=== PATIENT | female | born 1990 | race Caucasian/White ===

== ENCOUNTER 2023-06-07 12:52 | Emergency (ER) | payer OTHER ==
[2023-06-07] MEDS ORDERED: Acetaminophen 500 MG TAB ONE (15:21)
[2023-06-07] MEDS ORDERED: Ketorolac Tromethamine 30 MG (1 mL) VIAL ONE (15:21)
[2023-06-07 16:02] LABS: Bilirubin Neg (Negative); Blood, Urine 10 (Negative); Clarity Clear (Clear); Glucose, Urine (Dipstick) Normal (Negative); Ketone, Urine Negative (Negative); Leukocyte Negative (Negative); Nitrite Negative (Negative); Protein, Urine (Dipstick) Negative (Neg-Trace); Specific Gravity, Urine 1.015 (1.005-1.030); Urobilinogen Normal mg/dL (Less than 2)
[2023-06-07 16:06] LABS: Pregnancy Test - Urine (BHCG) Negative (Negative); Pregu Control Background? CLEAR/WHITE (CLR/WHITE); Pregu Control Bar Appear? YES (CONTROL BAR); Specific Gravity 1.015 (1.002-1.036)
[2023-06-07 16:15] LABS: CAUTI Indications for Culture Pelvic or flank pain; RBC/HPF 0-3 HPF (0-3); Squamous Epithelial 0-3 HPF (0-3); WBC/HPF 0-3 HPF (0-3)
[2023-06-07 16:16] LABS: Bacteria/HPF Rare-Few HPF (None Seen)
[2023-06-07 16:17] LABS: Urine Culture Reflex No No
[2023-06-08 21:07] LABS: Chlamydia by PCR, Vaginal Swab Not Detected (NotDetected); GC by PCR, Vaginal Swab Not Detected (NotDetected)
== END 2023-06-07 17:20 | disposition home or self-care (01) ==
LOC: CSHERS 12:52
DX: S93.401A Sprain of unspecified ligament of right ankle, initial encounter (principal); M54.50 Low back pain, unspecified; A63.0 Anogenital (venereal) warts; R03.0 Elevated blood-pressure reading, without diagnosis of hypertension; K92.9 Disease of digestive system, unspecified; F17.210 Nicotine dependence, cigarettes, uncomplicated; W19.XXXA Unspecified fall, initial encounter; Y93.01 Activity, walking, marching and hiking; Z55.6 Problems related to health literacy
CPT/HCPCS: 72100; 81001; 81025; 87491; 87591; 96372; J1885